=== PATIENT | male | born 1995 ===

== ENCOUNTER 2024-05-22 08:56 | Emergency (ER) | payer BC, SELFPAY ==
[2024-05-22 08:58] VITALS: BP 132/88
--- NOTE | 2024-05-22 09:00 | ED.GENMED ---
History of Present Illness
General
Chief Complaint: Abdominal Symptoms
Time Seen by Provider: 05/22/24 09:00
History of Present Illness
History of Present Illness:
28-year-old male without significant past medical history presenting to the emergency department with concern of food poisoning. Patient reports 3 days ago he ate a hotdog and has since had cramping and diarrhea. Notes that the pain in the abdomen
has been constant, worse when he passes gas or stool. Pain is in the suprapubic abdomen. He notes nausea without vomiting. Denies any history of abdominal surgeries. Denies fever. Denies any known sick contacts. Denies any chest pain,
difficulty breathing. Denies any blood in his stool. Denies any issues with urination. Denies any additional acute medical complaints
Phy Exam
Physical Exam
Physical Exam:
GENERAL: Alert , in no apparent distress
EYE: pupils equal and reactive
NECK: Supple
ENT: o/p clr, mmm.
CARDIAC: Regular rate and rhythm .
LUNGS: no acute respiratory distress
ABDOMEN: Soft, focal tenderness to suprapubic, periumbilical and right lower quadrant, no rebound or guarding
NEUROLOGICAL: Alert and oriented, no focal neuro deficits
SKIN: Warm and dry, skin intact.
MUSCULOSKELETAL: No edema, well perfused.
PSYCH: Normal and appropriate interaction.
Course
Orders/Labs/Results
Orders:
Orders
05/22/24 09:06
0.9% Sodium Chloride 1000 ml [Nss] 1,000 ml IV BOLUS
Iohexol [Omnipaque] See Protocol PO NOW STA
Ketorolac [Toradol] 15 mg IV NOW STA
05/22/24 09:07
CT Abd/pel W Iv And Oral Contr Urgent
Comment:
Reason For Exam: suprapubic and RLQ pain, r/o appe
05/22/24 09:24
Complete Blood Count/With Diff Urgent
Comprehensive Metabolic Panel Urgent
Lipase Urgent
05/22/24 10:30
Urinalysis Reflex To Culture Urgent
Date Specimen was Collected: 05/22/24
Time Specimen was Collected: 10:20
05/22/24 12:22
Amoxicillin 875 mg/Clav 125 mg [Augmentin 875 mg/125 mg] 1 tablet PO NOW STA
Abnormal Lab Results
05/22/24
09:24
Absolute Neuts (auto) 6.8 H 10^3/uL
(1.4-6.5)
Absolute Monos (auto) 1.0 H 10^3/uL
(0.1-0.6)
Lymphocytes % 19.9 L %
(20.5-51.1)
Monocytes % 9.9 H %
(1.7-9.3)
Glucose 101 H mg/dl
(70-99)
ALT 55 H U/L
(0-50)
05/22/24 09:24
05/22/24 09:24
Vital Signs
Initial and Last Documented VS:
Initial Vital Signs
Temp Pulse Resp BP Pulse Ox
98.1 F 88 16 132/88 98
05/22/24 08:58 05/22/24 08:58 05/22/24 08:58 05/22/24 08:58 05/22/24 08:58
Last Documented Vital Signs
Temp Pulse Resp BP Pulse Ox
98.1 F 64 18 109/71 99
05/22/24 08:58 05/22/24 12:15 05/22/24 12:15 05/22/24 12:00 05/22/24 12:15
MDM/Problems Addressed
MDM/Problems Addressed:
28-year-old male with history of presenting to the emergency department for abdominal pain and diarrhea. Vital signs are normal.
On exam patient is well-appearing, nontoxic, resting comfortably. On abdominal exam, focal tenderness to the lower abdomen, most notably in the periumbilical region in the right lower quadrant. Differential considerations include enteritis versus
colitis versus appendicitis. Given potential appendicitis diagnosis, will plan for laboratory analysis and CT imaging with oral and IV contrast. Toradol administered for pain.
12:20 - Patient's labs are unremarkable. CT shows uncomplicated diverticulitis. Will start on Augmentin. Otherwise feel stable for discharge, candidate for outpatient therapy. Patient remains hemodynamically stable, able to tolerate p.o. Return
precautions discussed and patient verbalized understanding
*Critical Care Note
Total Time (30-74mins, 75-104mins- exclusive of procedures): Not Applicable
ED Attending Note
-
Portions of this chart may have been created with voice recognition software.� Occasional wrong word or��sound alike� substitutions may have occurred due to the inherent limitations of voice recognition software.
Discharge Plan
Departure
Patient Disposition: Home (Routine Discharge)
Date of Disposition: 05/22/24
Time of Disposition: 12:25
Patient with high blood pressure during this ER visit?: No
Condition: Good
Discharge Problem:
Diverticulitis, Abdominal pain
Instructions: Diarrhea in teens and adults, Diverticulitis (DC), [place] Diet
Prescriptions:
New
amoxicillin-pot clavulanate 875-125 mg tablet
1 tab PO Q12H 10 Days Qty: 20 0RF
Referrals:
Edvin Sadler MD [Family Provider] -
Activity Restrictions/Additional Instructions:
Please follow-up closely with your primary care doctor. Return to the emergency department with any increased pain, development of fever, vomiting with inability to tolerate your medication or food/liquid by mouth, concern for dehydration, chest
pain or difficulty breathing
Interventions
Interventions:
*Risk Screen - Suicide Last Done: 05/22/24 08:58
*General Assessment Last Done: 05/22/24 08:58
*Neglect/Abuse Screening Last Done: 05/22/24 08:58
ED- Fall Risk Assessment Last Done: 05/22/24 09:16
*ED COVID-19 Vaccine History Last Done: 05/22/24 09:16
ZT-Aswcfu-Warqwoudim Assessment Last Done: 05/22/24 09:16
Discharge Date and Time
Print Language: LATVIAN
[2024-05-22 09:14] VITALS: BMI 24.2
[2024-05-22] MEDS: OMNIPAQUE 50 ML PO (09:23)
[2024-05-22] MEDS: NSS 1000 IV (09:23)
[2024-05-22] MEDS: TORADOL 15 MG IV (09:23)
[2024-05-22 09:35] LABS: % Basophils 0.2 % (0-2); % Eosinophils 0.8 % (0-6); % Immature Granulocytes 0.3 % (0-0.5); % Lymphocytes 19.9 % (20.5-51.1); % Monocytes 9.9 % (1.7-9.3); % Neutrophils 68.9 % (42.2-75.2); Absolute Eosinophils 0.1 10^3/uL (0-0.7); Absolute Neutrophils 6.8 10^3/uL (1.4-6.5); Hematocrit 39.4 % (39.0-52.0); Mean Corp Hgb Conc. 35.5 g/dL (33.0-37.0); Mean Corpuscular Hgb 29.2 pg (27.0-31.0); Mean Corpuscular Volume 82.1 fL (80.0-94.0); Mean Platelet Volume 9.3 fL (7.4-10.4); Nucleated Red Blood Cells % 0 % (-); Platelet Count 206 10^3/uL (130-400); Red Cell Dist. Width 11.9 % (11.5-14.5); White Blood Cell Count 9.9 10^3/uL (4.8-10.8)
[2024-05-22 09:49] LABS: ALT (SGPT) 55 U/L (0-50); AST (SGOT) 32 U/L (17-59); Albumin 4.1 g/dl (3.5-5.0); Alkaline Phosphatase 84 U/L (38-126); Blood Urea Nitrogen 12 mg/dl (9-20); Calcium 9.3 mg/dl (8.4-10.2); Carbon Dioxide 28 mmol/L (22-30); Chloride 102 mmol/L (98-107); Estimated Creatinine Clearance > 125 ml/min; Glucose 101 mg/dl (70-99); Lipase 69 U/L (23-300); Potassium 3.8 mmol/L (3.5-5.1); Sodium 137 mmol/L (135-145); Total Bilirubin 0.5 mg/dl (0.2-1.3); Total Protein 6.7 g/dl (6.3-8.2); eGFR > 60.00
[2024-05-22 10:00] VITALS: BP 117/72
[2024-05-22 10:59] LABS: Urine Albumin Negative (Neg - Trace); Urine Bilirubin Negative (Negative); Urine Character Clear (Clear); Urine Color Yellow; Urine Glucose Negative (Negative); Urine Ketone Negative (Negative); Urine Leukocyte Negative (Negative); Urine Nitrite Negative (Negative); Urine Occult Blood Negative (Negative); Urine Urobilinogen Negative (Neg - 1+)
[2024-05-22 11:01] VITALS: BP 108/57
[2024-05-22 12:00] VITALS: BP 109/71
[2024-05-22] MEDS: AUGMENTIN 875 MG/125 MG 1 TABLET PO (12:30)
== END 2024-05-22 12:50 | disposition home or self-care (01) ==
LOC: EMR 08:56
PROVIDERS: EMERGENCY PHYSICIAN Student in an Organized Health Care Education/Training Program; FAMILY PHYSICIAN Internal Medicine
DX: K57.92 Diverticulitis of intestine, part unspecified, without perforation or abscess without bleeding (principal); R10.9 Unspecified abdominal pain
CPT/HCPCS: 99284; 96374; 96361; 74177; 80053; 81003; 83690; 85025; Q9967